=== PATIENT | female | born 1995 | race African-American/Black ===

== ENCOUNTER 2024-07-12 10:23 | Outpatient (CLI) | payer OTHER, SELFPAY ==
--- OUTSIDE RECORDS SUMMARY | 2024-07-12 10:37 | XMS_ITS | Referral Summary ---
Author Organization [facility] Address [address] [place] [address] Care Team Providers Care Manufacturing Test Technician Name Role Phone Shonda Robbins MD Primary Care Provider [phone] Source Comments [facility],non-owned Affiliates and Associated Physician Practices is amultiple site organization consisting of ambulatory clinics and hospital sitesin [place], [place], [place] and [place]. This disclosure is being madepursuant to the Care Everywhere program and may not contain all information available regarding this patient. Last updated 18.[facility] Medications Be aware that medications may not be up to date on this document. Always verify current medications with the patient. No known medications Social History Tobacco Use Types Packs/Day Years Used Date Smoking Tobacco: Never Assessed Sex and Gender Information Value Date Recorded Sex Assigned at Not on file Gender Identity Not on file Sexual Orientation Not on file Plan of Treatment Not on file Care Teams Manufacturing Test Technician Relationship Specialty Start Date End Date Shonda Robbins MD [address] [place] [address] PCP - General 05/18/10
--- OUTSIDE RECORDS SUMMARY | 2024-07-12 10:37 | XMS_ITS | Patient Health Summary ---
Author Organization [facility] Address [address] [place] [address] Care Team Providers Care Live Games Dealer Name Role Phone Shonda Robbins MD Primary Care Provider Note from [facility],non-owned Affiliates and Associated Physician Practices is amultiple site organization consisting of ambulatory clinics and hospital sitesin [place], [place], [place] and [place]. This disclosure is being madepursuant to the Care Everywhere program and may not contain all information available regarding this patient. Last updated 18.[facility] Medications Be aware that medications may not be up to date on this document. Always verify current medications with the patient. No known medications Social History Tobacco Use Types Packs/Day Years Used Date Smoking Tobacco: Never Assessed Sex and Gender Information Value Date Recorded Sex Assigned at Not on file Gender Identity Not on file Sexual Orientation Not on file Procedures * XR SHOULDER RIGHT 2VW OR MORE(Performed 05/18/2010) Performed for Closed dislocation of shoulder, unspecified site Results * XR SHOULDER 2+ VW RIGHT (05/18/2010 2:14 PM X [employer]AY [employer]LECT[employer] WIREMAN) Anatomical Region Laterality Modality Upper Extremity Radiographic Kyara ging 05/18/2010 2:28 PM X [employer] W[employer] Impressions 05/18/2010 2:28 PM X RAY ELECT[employer] WIREMAN 1. Minimal Hill-Sachs deformity superolateral right humeral head. 2. Probable tiny Bankart fracture. Narrative 05/18/2010 2:28 PM X [employer] W[employer] Four views of the right shoulder performed May 18, 2010. History: Shoulder dislocation. Frontal internal and external rotation views of the right shoulder as well as an axillary view were obtained. There is a subtle Hill-Sachs deformity involving the superolateral aspect of the right humeral head. On the axillary view there is suggestion of a tiny bony fragment projected along the anterolateral aspect of the glenoid fossa. This may represent a minimal Bankart lesion. Presently there is no evidence of shoulder dislocation. The acromioclavicular joint is intact. No other fractures are seen. Procedure Note Angelica Durán MD - 05/18/2010 Four views of the right shoulder performed May 18, 2010. History: Shoulder dislocation. Frontal internal and external rotation views of the right shoulder as well as an axillary view were obtained. There is a subtle Hill-Sachs deformity involving the superolateral aspect of the right humeral head. On the axillary view there is suggestion of a tiny bony fragment projected along the anterolateral aspect of the glenoid fossa. This may represent a minimal Bankart lesion. Presently there is no evidence of shoulder dislocation. The acromioclavicular joint is intact. No other fractures are seen. IMPRESSION 1. Minimal Hill-Sachs deformity superolateral right humeral head. 2. Probable tiny Bankart fracture. Satnam Webber MD DIAGNOSTIC GIULIANA Dougherty ORDERABLES Care Teams Live Games Dealer Relationship Specialty Start Date End Date Shonda Robbins MD [address] [address] PCP - General 05/18/10
--- OUTSIDE RECORDS SUMMARY | 2024-07-12 10:37 | XMS_ITS | Referral Summary ---
Author Organization [facility] [place] [facility] Address [address] [place] [address] Care Team Providers Care Nut Feeder Name Role Phone Pastora De Leon NP Primary Care Provider Encounters Date Type Department Care Team Description 06/29/2024 7:00 PM ONLINE MARKETING DIRECTOR Office Visit [facility] at [address] [phone] Alley Greenberg NP COVID-19 (Primary Dx); Sore throat 06/27/2024 8:00 AM ONLINE MARKETING DIRECTOR Office Visit [facility] at [address] [place] [address] Emily Blanchard NP Intractable chronic migraine with aura and without status migrainosus (Primary Dx); Snoring 05/03/2024 Telephone [facility] at [address] [place] [address] Pastora De Leon NP Prior Auth (Quilipta) from Last 3 Months Allergies No known active allergies Medications LORazepam (Ativan) 0.5 mg tabletIndicati ons:Anxiety Take 1 tablet (0.5 mg total) by mouth 2 (two) times a day as needed for anxiety (anxiety) 60 tablet 5 06/01/20 20 Active traZODone (DESYREL) 50 mg tabletIndicati ons:Insomnia, unspecified type Take 1 tablet (50 mg total) by mouth nightly as needed for sleep 30 tablet 5 07/02/19 21 Active sertraline (ZOLOFT) 50 mg tablet Take 1 tablet (50 mg total) by mouth nightly 04/14/20 22 Active atogepant 30 mg tabletIndicati ons:Migraine without aura and without status migrainosus, not intractable Take 30 mg by mouth daily as needed (migraines) 10 tablet 1 11/24/19 24 Active topiramate (TOPAMAX) 25 mg tabletIndicati ons:Intractabl e chronic migraine with aura and without status migrainosus Take 1 tablet (25 mg total) by mouth daily 30 tablet 06/27/19 25 Active buPROPion XL (WELLBUTRIN XL) 150 mg 24 hr tablet Take 1 tablet (150 mg total) by mouth daily 06/20/19 25 Active buPROPion XL (WELLBUTRIN XL) 300 mg 24 hr tablet Take 1 tablet (300 mg total) by mouth daily 06/20/19 25 Active cyclobenzaprin e (FLEXERIL) 10 mg tablet Take 1 tablet (10 mg total) by mouth 3 (three) times a day as needed for muscle spasms 10 tablet 02/16/20 23 025 Discontinued dicyclomine (BENTYL) 10 mg capsuleIndicat ions:Migraine without aura and without status migrainosus, not intractable Take 1 capsule (10 mg total) by mouth 3 (three) times a day as needed (abd pain and diarrhea) 30 capsule 11/03/19 24 025 Discontinued metFORMIN XR (GLUCOPHAGE XR) 500 mg 24 hr tabletIndicati ons:Insulin resistance Take 2 tablets (1,000 mg total) by mouth daily with breakfast 180 tablet 1 11/24/19 24 025 Discontinued buPROPion XL (WELLBUTRIN XL) 450 mg 24 hr tabletIndicati ons:Anxiety Take 1 tablet (450 mg total) by mouth daily 90 tablet 1 11/24/19 24 025 Discontinued nirmatrelvir 300 mg-ritonavir 100 mg (PAXLOVID 300mg-100 mg) tablets,dose pack tablets in a dose packIndication s:COVID-19 Take 300 mg nirmatrelvir (2 x 150 mg tablets) with 100 mg ritonavir (1 x 100 mg tablet) with all three tablets taken together by mouth twice daily for 5 days. 30 tablet 06/29/19 25 025 Active Problems Problem Noted Date Diagnosed Date Intractable chronic migraine with aura and without status migrainosus 06/27/2024 Assessment & Plan (06/27/2024 11:00 AM ONLINE MARKETING DIRECTOR): - Chronic, worsening - Reports improvement with Qulipta but has had problems with insurance coverage. In office samples provided today. - Initiate topiramate 25 mg daily for preventative migraine treatment - Encouraged headache diary to identify triggers - Encouraged adequate fluid intake and rest - Follow-up in 3-4 weeks Snoring 06/27/2024 Assessment & Plan (06/27/2024 11:01 AM ONLINE MARKETING DIRECTOR): - Chronic, worsening - Reports witnessed apneic episodes and loud snoring. Father has history of sleep apnea. - Refer to pulmonology for further evaluation and sleep study Insulin resistance 11/24/2023 Assessment & Plan (11/24/2023 10:18 AM CDT): New problem Start on Metformin XR 1000mg daily Discussed side effects, risk/benefits with pt while in office. May help to lose weight as well Mixed hyperlipidemia 11/24/2023 Assessment & Plan (11/24/2023 10:19 AM CDT): Encouraged dietary modifications - limit intake of saturated fat. This includes full-fat dairy, butter, red meat. Avoid trans fats - this includes commercially prepared baked goods, margarines, snack foods, & processed foods. Limit cholesterol to <200mg daily. Foods high in cholesterol include liver and other organ meats, egg yolks and full-fat dairy products. Replace bad fats with healthy fats like omega -3, avocado, olive, walnut, & coconut oil. Try to get at least 30 min of moderate exertion exercise most days (at least 5). Increase soluble fiber - oatmeal, kidney beans, [place] sprouts, apples, pears, barley and prunes are good examples. Encourage OTC fish oil/omega 3 supp Iron deficiency anemia elvi jacob to inadequate dietary iron intake 11/24/2023 Assessment & Plan (11/24/2023 10:19 AM CDT): New problem Recommend OTC iron supp Irritable bowel syndrome wit h both constipation and diarrhea 11/03/2023 Assessment & Plan (11/03/2023 9:28 AM CDT): Chronic Not well controlled Frequent nausea, abd pain, and diarrhea Has failed on omeprazole, lansoprazole Will try Bentyl, advise to treat sx, encourage peppermint tea/oil May consider GI referral or Elavil if not improving Morbid obesity with BMI of 40.0-44.9, adult 11/2021 Assessment & Plan (11/03/2023 9:26 AM CDT): Not improving 7lbs gained since last visit in 02/2023 Will check hormone panels Gastroesophageal reflux disease without esophagi tis 05/17/2022 Assessment & Plan (07/19/2022 4:26 PM ONLINE MARKETING DIRECTOR): Was not able to get prevacid at the pharmacy Trial omeprazole instead Assessment & Plan (05/17/2022 4:55 PM ONLINE MARKETING DIRECTOR): Start prevacid - treat for 1 month then d/c and see if symptoms return. Current moderate episode of major depressive disorder without prior episode 03/04/2019 Assessment & Plan (06/01/2020 5:56 PM ONLINE MARKETING DIRECTOR): Stable, no changes. Continue current regimen with wellbutrin Assessment & Plan (11/05/2019 4:36 PM CDT): Stable, no changes. Continue current regimen with wellbutrin Assessment & Plan (08/06/2019 4:54 PM ONLINE MARKETING DIRECTOR): Stable, no changes. Continue current regimen with Wellbutrin Assessment & Plan (03/04/2019 9:40 AM CDT): Stable, no changes. Continue current regimen with Wellbutrin. Feels mood changes are related to stress surrounding her recent BAR testing. Anxiety 04/25/2018 Assessment & Plan (11/24/2023 10:17 AM CDT): Stable Continue Zoloft 50mg HS, Ativan 0.5mg BID PRN, Was taking Wellbutrin 300+150 for a combined 450 dose. Switched to 450mg to decrease quantity of daily pills. Assessment & Plan (06/01/2020 5:56 PM ONLINE MARKETING DIRECTOR): Stable, no changes. Continue current regimen with wellbutrin, ativan prn Assessment & Plan (11/05/2019 4:36 PM CDT): Stable, no changes. Continue current regimen with ativan Assessment & Plan (08/06/2019 4:54 PM ONLINE MARKETING DIRECTOR): Stable, no changes. Continue current regimen with Wellbutrin and Ativan Assessment & Plan (03/04/2019 9:39 AM CDT): Stable, no changes. Continue current regimen with Ativan PRN Assessment & Plan (11/15/2018 1:31 PM CDT): Stable, no changes. Continue current regimen with Wellbutrin and Ativan PRN Insomnia 04/25/2018 Assessment & Plan (07/02/2020 1:16 PM ONLINE MARKETING DIRECTOR): Trazodone PRN - refill requested Assessment & Plan (11/05/2019 4:36 PM CDT): Stable, no changes. Continue current regimen with trazodone Assessment & Plan (03/04/2019 9:58 AM CDT): Stable, no changes. Continue current regimen with Trazodone PRN Assessment & Plan (11/15/2018 1:32 PM CDT): Stable, no changes. Continue current regimen with Trazodone Irregular menses 04/25/2018 Assessment & Plan (11/24/2023 10:20 AM CDT): Not improved May be d/t nodule found on US Repeat US ordered for 12/21/23 May also improve with treating insulin resistance F/u 1 month after US Assessment & Plan (11/03/2023 9:21 AM CDT): Recurrent problem Last mense May 2023 Suspicious for PCOS Will check labs including serum preg D/t length without cycle will check TVUS as well May consider progesterone challenge and initiating HALLIE if PCOS Resolved Problems Problem Noted Date Diagnosed Date Resolved Date Chronic migraine with aura 06/27/2024 0 06/27/2024 Migraine without aura and wi thout status migrainosus, not intractable 05/17/2022 06/27/2024 Assessment & Plan (11/24/2023 10:18 AM CDT): Improved with Quilipta samples On furthering discussion with pt has failed on Sumatriptan, Topamax, and Propranolol. Will appeal insurance [place] denial considering new information. Assessment & Plan (11/03/2023 9:25 AM CDT): Not well controlled Failed on sumatriptan Had previous success on Ubrelvy, not preferred formulary for insurance Will try Quilipta Appears Nurtec would be next option if Qulipta not effective Given samples of Qulipta and Ubrelvy while in office today Assessment & Plan (05/17/2022 4:55 PM ONLINE MARKETING DIRECTOR): Worsening, more frequent now and lasting longer. No relief with OTC medications. Start Ubrelvy Elevated serum cholesterol 07/10/2018 0 03/04/2019 Assessment & Plan (11/15/2018 1:32 PM CDT): Lipid abnormalities are improving with lifestyle modifications. Nutritional counseling was provided. Lipids will be reassessed in 6 months. Hypothyroidism 04/25/2018 03/04/2019 Assessment & Plan (11/15/2018 1:32 PM CDT): Off Synthroid. TSH normal. Monitor Class 2 obesity due to exces s calories without serious comorbidity with body mass index (BMI) of 36.0 to 36.9 in adult 04/25/201811/2021 Assessment & Plan (07/02/2020 1:17 PM ONLINE MARKETING DIRECTOR): 5 pounds weight loss since last visit May take topamax BID Phentermine daily Monitor blood pressure - goal of less than 140/90 If high, notify us Return for follow up in 3 months Assessment & Plan (06/01/2020 5:55 PM ONLINE MARKETING DIRECTOR): BMI Follow-up includes: nutrition counseling, exercise counseling and education provided. Restart phentermine + topamax Assessment & Plan (11/05/2019 4:37 PM CDT): Continue phentermine - can try full pill again, but if has symptoms cut back to 1/2 pill daily Get labs done Assessment & Plan (08/06/2019 4:54 PM ONLINE MARKETING DIRECTOR): BMI Follow-up includes: nutrition counseling, exercise counseling and education provided. Try 1/2 dose phentermine Assessment & Plan (03/04/2019 9:39 AM CDT): Will retry phentermine Assessment & Plan (11/15/2018 1:32 PM CDT): Obesity is worsening. Discussed the patient's BMI. The BMI is above average; BMI management plan is completed. General weight loss/lifestyle modification strategies discussed (elicit support from others; identify saboteurs; non-food rewards, etc). Pharmacotherapy as ordered. Immunizations Name Administration Dates Next Due DTP 06/29/1994, 4,1993,06/08 Hep B, Adolescent or Pediatric 1993,1992,1993 HiB 06/29/1994, 4,1993,06/08 Influenza, Quadrivalent, Spl it, Preservative Free, Intramuscular 03/29/2023,05/17/2021,03/04/2020 Influenza, Unspecified 2022,2021(Deferred: Patient decision),05/17/2021,2021,2019,2019(Deferred: Patient decision),2019(Deferred: Patient Refused),2019(Deferred: Patient Refused) MMR 06/29/1994 OPV 1993,1993,1993 Varicella 11/05/2010 Social History Tobacco Use Types Packs/Day Years Used Date Smoking Tobacco: Never Smokeless Tobacco: Never Tobacco Cessation:Counseling Given: Not Answered Alcohol Use Standard Drinks/Week Comments Yes 0 (1 standard drink = 0.6 oz pur e alcohol) occas AUDIT-C Answer Date Recorded Q1: How often do you have a drink containing alcohol? Monthly or less 06/27/2024 Q2: How many drinks containi ng alcohol do you have on a typical day when you are drinking? Patient does not drink Q3: How often do you have si x or more drinks on one occasion? Never 06/27/2024 PHQ-2 Answer Date Recorded PHQ-2 Total Score (If total score is 3 or more points, staff should administer the PHQ-9) 0 11/03/2023 Comments No Sex and Gender Information Value Date Recorded Sex Assigned at Not on file Legal Sex Female 7:08 PM ONLINE MARKETING DIRECTOR Gender Identity Female 11/04/2019 9:40 PM CDT Sexual Orientation Straight 11/04/2019 9: 40 PM CDT Last Filed Vital Signs Vital Sign Reading Time Taken Comments Blood Pressure 120/66 06/29/2024 7:03 PM ONLINE MARKETING DIRECTOR Pulse 116 06/29/2024 7:03 PM ONLINE MARKETING DIRECTOR Temperature 37 ??C (98.6 ??F) 06/29/2024 7:03 PM ONLINE MARKETING DIRECTOR Respiratory Rate 18 06/29/2024 7:03 PM ONLINE MARKETING DIRECTOR Oxygen Saturation 98% 06/29/2024 7:03 PM ONLINE MARKETING DIRECTOR Inhaled Oxygen Concentration - - Weight 106.6 kg (235 lb) 06/29/2024 7:03 PM ONLINE MARKETING DIRECTOR Height 165.1 cm (5' 5 ) 06/29/2024 7:03 PM ONLINE MARKETING DIRECTOR Body Mass Index 39.11 06/29/2024 7:03 PM ONLINE MARKETING DIRECTOR Plan of Treatment Not on file Procedures Procedure Name Priority Date/Time Associated Diagnosis Comments POCT RAPID STREP Routine 06/29/2024 7:20 PM ONLINE MARKETING DIRECTOR Sore throat POC INFLUENZA A/B, COVID-19 ANTIGEN Routine 06/29/2024 7:20 PM ONLINE MARKETING DIRECTOR Sore throat HEPATITIS C ANTIBODY Routine 11/04/2023 8:59 AM CDT Encounter for hepatitis C screening test for low risk patient [facility] PAP SMEAR Routine 12/10/2016 from Last 3 Months or Most Recently Relevant to Health Maintenance Results * (ABNORMAL) POC Influenza A/B, COVID-19 antigen (06/29/2024 7:20 PM ONLINE MARKETING DIRECTOR) [facility] Influenza A Ag, POC Negative Negative [facility] Influenza B Ag, POC Negative Negative [facility] COVID-19 Ag POC Positive(A) Presumptive Negative, Invalid [facility] Nasopharyngeal 06/29/2024 7: 20 PM ONLINE MARKETING DIRECTOR Alley Greenberg NP POINT OF CARE TEST ORDERAB LES Final Result Performing Organization Address City/State/[facility] Co de Phone Number [facility] [address] [place] [address] * POCT rapid strep A (06/29/2024 7:20 PM ONLINE MARKETING DIRECTOR) [facility] Rapid Strep A, POC Negative Negative Swab 06/29/2024 7:20 PM ONLINE MARKETING DIRECTOR Alley Greenberg NP POINT OF CARE TEST ORDERAB LES Final Result * Hepatitis C antibody Blood (11/04/2023 8:59 AM CDT) [facility] Hep C Ab Nonreactive Nonreactive Comment: Antibodies to HCV not detected. Does NOT exclude the possibility of recent exposure to HCV. Current interpretive data was last revised on 22 Interpretive Data Nonreactive: Antibodies to HCV not detected. Does NOT exclude the possibility of recent exposure to HCV. Equivocal: Equivocal for HCV antibodies. Supplemental molecular testing will be automatically performed to determine infection status in accordance with current CDC screening recommendations. ?? Reactive: Positive for HCV antibodies. ??This may represent current or past HCV infection. Supplemental molecular testing will be automatically performed to determine ??current infection status in accordance with current CDC screening recommendations. Interpretive data was last revised on 2019. Blood 11/04/2023 8:59 AM CDT 11/04/2023 9:01 AM CDT us Pastora De Leon [facility] MICROBIOLOGY - GENERAL OR DERABLES Final Result [facility] [address] [facility] Department [place] [address] * PAP SMEAR (12/10/2016) Pap smear Normal Comment:Dr. White us Historical Provider HEALTH MAINTENANCE Final Result from Last 3 Months or Most Recently Relevant to Health Maintenance Insurance [facility] Care Teams Nut Feeder Relationship Specialty Start Date End Date Pastora De Leon NP [address] [facility] [address] [address] PCP - General Family Medicine 09/25/23
--- OUTSIDE RECORDS SUMMARY | 2024-07-12 10:37 | XMS_ITS | Clinical Summary ---
Author Organization [facility] Address [address] [place] [id number] Phone [email or web address] Care Team Providers Care Tire Rebuilder Name Role Phone Pastora De Leon NP Primary Care Provider [phone] Medications buPROPion XL (WELLBUTRIN XL) 150 MG 24 hr tablet Take 150 mg by mouth 1 (one) time each day. 01/31/2022 Active buPROPion XL (WELLBUTRIN XL) 300 MG 24 hr tablet Take 300 mg by mouth 1 (one) time each day. 01/31/2022 Active doxycycline (VIBRA-TABS) 100 MG tablet Take 1 tablet by mouth once daily as needed. 09/26/2019 Active LORazepam (ATIVAN) 0.5 MG tablet Take 0.5 mg by mouth. 06/01/2020 Active phentermine (ADIPEX-P) 37.5 MG tablet Take 37.5 mg by mouth in the morning. 06/01/2020 Active sertraline (ZOLOFT) 50 MG tablet Take 50 mg by mouth 1 (one) time each day in the evening. 01/31/2022 Active topiramate (TOPAMAX) 25 MG tablet Take 25 mg by mouth in the morning and 25 mg in the evening. 06/01/2020 Active traZODone (DESYREL) 50 MG tablet TAKE 1 TABLET BY MOUTH EVERY NIGHT NEEDED FOR INSOMNIA 12/18/2021 Active omeprazole (PriLOSEC) [address] capsule 07/20/2022 Activ e sertraline (ZOLOFT) 50 MG tablet Take 50 mg by mouth every night. 04/14/2022 Active Ubrelvy 50 MG tablet 07/19/2022 Active Atogepant 30 MG tablet Take 30 mg by mouth. 11/24/2023 Active dicyclomine (BENTYL) 10 MG capsule Take 10 mg by mouth. 11/03/2023 Active metFORMIN XR (GLUCOPHAGE-XR) 500 MG 24 hr tablet Take 1,000 mg by mouth in the morning. 11/24/2023 Active Active Problems Problem Noted Date Diagnosed Date Insulin resistance 11/24/2023 Iron deficiency anemia secon nidia to inadequate dietary iron intake 11/24/2023 Mixed hyperlipidemia 11/24/2023 Irritable bowel syndrome wit h both constipation and diarrhea 11/03/2023 Gastroesophageal reflux disease without esophagi tis 05/17/2022 Overview (08/29/2022): Last Assessment & Plan: Was not able to get prevacid at the pharmacy Trial omeprazole instead Migraine without aura and wi thout status migrainosus, not intractable 05/17/2022 Overview (08/29/2022): Last Assessment & Plan: Worsening, more frequent now and lasting longer. No relief with OTC medications. Start Ubrelvy Current moderate episode of major depressive disorder without prior episode 03/04/2019 Overview (02/21/2022): Last Assessment & Plan: Stable, no changes. Continue current regimen with wellbutrin Anxiety 04/25/2018 Overview (02/21/2022): Last Assessment & Plan: Stable, no changes. Continue current regimen with wellbutrin, ativan prn Morbid obesity with BMI of 40.0-44.9, adult 04/12 Overview (08/29/2022): Last Assessment & Plan: 5 pounds weight loss since last visit May take topamax BID Phentermine daily Monitor blood pressure - goal of less than 140/90 If high, notify us Return for follow up in 3 months Insomnia 04/25/2018 Overview (02/21/2022): Last Assessment & Plan: Trazodone PRN - refill requested Irregular menses 04/25/2018 Immunizations Name Administration Dates Next Due Covid-19 (Moderna [place], 12yr s+) (CVX-207) 05/17/2021,08/28/2020,07/31/2020 DTP (CVX-01) 06/29/1994, 4,1993,1992 Hep B (ENGERIX B RECOMBIVAX) Adol/Ped (CVX-08) 1993,1993,1993 Hib, unspecified (CVX-17) 06/29/1994,10/1993,1993,1992 Influenza, (Afluria Fluarix Flulaval Fluzone) quad, PF (CVX-150) 03/29/2023,05/17/2021,03/04/2020 Influenza, unspecified (CVX-88) 03/12/20 22,05/17/2021,2021,2019,03/04/2020 MMR (M-M-R-II,PRIORIX) (TWO VIALS-MUST MIX) (CVX-03) 06/29/1994 OPV (CVX-02) 1993,1993,1993 Varicella (VARIVAX) (TWO VIA LS-MUST MIX) (CVX-21) 11/05/2010 Social History Tobacco Use Types Packs/Day Years Used Date Smoking Tobacco: Never Assessed Intimate Partner Violence Answer Date R ecorded Insults You Not on file 03/26/2021 Threatens You Not on file 03/26/2021 Screams at You Not on file 03/26/2021 Physically Hurt Not on file 03/26/2021 Intimate Partner Violence Score Not on file 03/26/2021 Stress Answer Date Recorded Stress in your Life Not on file 04/15/2024 Dealing with Stress 3 04/15/2024 Comments Unknown Sex and Gender Information Value Date Recorded Sex Assigned at Not on file Legal Sex Female 10:46 AM CDT Gender Identity Not on file Sexual Orientation Not on file Plan of Treatment Health Maintenance Due Date Last Done Comments Dental Cleaning/Exam 1993 HIV Screening 1993 Hepatitis C Screening 1993 Polio Immunization (4 of 4 - 4-dose series) 1997 1993, 1993, 1993 Tetanus (Tdap or Td) Immunization 2004 Tetanus Diphtheria and Pertussis Immunization (5 - Tdap) 2004 06/29/1994, 1993, 1993, Additional history exists Cervical Cancer Screening 2009 Annual Preventive Exam 2011 Hep B Infection Screening - Triple Screen 2011 Covid-19 Immunization ( season) 2024 05/17/2021, 08/28/2020, 07/31/2020 Influenza Immunization (#1) 02/11/202403/12, 2022, 05/17/2021, Additional history exists Hepatitis B Immunization Completed 994, 1993, 1993 HIB Immunization Completed 06/29/1994, 10/1993, 1993, Additional history exists Varicella Immunization Aged Out 11/05/2010 No lo nger eligible based on patient's age to complete this topic HPV Immunization Aged Out No longer e ligible based on patient's age to complete this topic Hepatitis A Immunization Aged Out No longer eligible based on patient's age to complete this topic Pneumococcal: Ped (0 to 5 Yrs) and At-Risk Member (6 to 64 Yrs) Aged Out No longer eligible based on patient's age to complete this topic Insurance [employer] NO COPAY NB Care Teams Tire Rebuilder Relationship Specialty Start Date End Date Pastora De Leon NP [address] [place] [address] [place] [id number] PCP - General Family Medicine 01/25/24
--- OUTSIDE RECORDS SUMMARY | 2024-07-12 10:37 | XMS_ITS | Clinical Summary ---
Author Organization [facility] Address [address] [place] [address] Care Team Providers Care Supervisor Reclamation Name Role Phone Shonda Robbins MD Primary Care Provider [phone] Source Comments [facility],non-owned Affiliates and Associated Physician Practices is amultiple site organization consisting of ambulatory clinics and hospital sitesin [place], [place], [place]. This disclosure is being madepursuant to the Care Everywhere program and may not contain all information available regarding this patient. Last updated 18.[facility] Medications Be aware that medications may [...] Health Maintenance Due Date Last Done Comments PAP SMEAR 1993 HIV SCREENING 2008 HEPATITIS C SCREENING 03/08/2011 DTAP/TDAP/TD VACCINES (1 - Tdap) 2012 HEPATITIS B VACCINE (1 of 3 - 19+ 3-dose series) 2012 COVID-19 VACCINE ( - 2023-2 5 season) 2024 INFLUENZA VACCINE (#1) 2024 DEPRESSION SCREENING 06/12/2024 ZOSTER VACCINE (1 of 2) 2043 HIB VACCINE Aged Out No longer eligi ble based on patient's age to complete this topic HPV VACCINE Aged Out No longer eligi ble based on patient's age to complete this topic MENINGOCOCCAL (Group B) VACCINE Aged Out No longer eligible based on patient's age to complete this topic MENINGOCOCCAL VACCINE Aged Out No isaac nj eligible based on patient's age to complete this topic PNEUMOCOCCAL VACCINE Aged Out No long er eligible based on patient's age to complete this topic Care Teams Supervisor Reclamation Relationship Specialty Start Date End Date Shonda Robbins MD [address] [address] PCP - General 05/18/10
--- OUTSIDE RECORDS SUMMARY | 2024-07-12 10:37 | XMS_ITS | Clinical Summary ---
Author Organization [facility] Address [address] [place] [address] Care Team Providers Care Tour Agent Name Role Phone JoaquinPastora cain DAVID Primary Care Provider [phone] Allergies No known active allergies Medications LORazepam [...] needed for muscle spasms 10 tablet 02/16/20 025 Discontinued dicyclomine (BENTYL) 10 mg capsuleIndicat [...] by mouth daily 90 tablet 1 11/24/19 025 Discontinued nirmatrelvir 300 mg-ritonavir 100 mg [...] 06/27/2024 Assessment & Plan (06/27/2024 11:00 AM MACHINE PACKAGE SEALER): - Chronic, worsening - Reports improvement with Qulipta but has had problems with insurance coverage. In office samples provided today. - Initiate topiramate 25 mg daily for preventative migraine treatment - Encouraged headache diary to identify triggers - Encouraged adequate fluid intake and rest - Follow-up in 3-4 weeks Snoring 06/27/2024 Assessment & Plan (06/27/2024 11:01 AM MACHINE PACKAGE SEALER): - Chronic, worsening - Reports witnessed apneic [...] Increase soluble fiber - oatmeal, kidney beans, [place] sprouts, apples, pears, barley and prunes are [...] Morbid obesity with BMI of 40.0-44.9, adult 12/0 11/2021 Assessment & Plan (11/03/2023 9:26 AM CDT): Not improving 7lbs gained since last visit in 02/2023 Will check hormone panels Gastroesophageal reflux disease without esophagi tis 05/17/2022 Assessment & Plan (07/19/2022 4:26 PM MACHINE PACKAGE SEALER): Was not able to get prevacid at the pharmacy Trial omeprazole instead Assessment & Plan (05/17/2022 4:55 PM MACHINE PACKAGE SEALER): Start prevacid - treat for 1 month then d/c and see if symptoms return. Current moderate episode of major depressive disorder without prior episode 03/04/2019 Assessment & Plan (06/01/2020 5:56 PM MACHINE PACKAGE SEALER): Stable, no changes. Continue current regimen with wellbutrin Assessment & Plan (11/05/2019 4:36 PM CDT): Stable, no changes. Continue current regimen with wellbutrin Assessment & Plan (08/06/2019 4:54 PM MACHINE PACKAGE SEALER): Stable, no changes. Continue current regimen with [...] pills. Assessment & Plan (06/01/2020 5:56 PM MACHINE PACKAGE SEALER): Stable, no changes. Continue current regimen with wellbutrin, ativan prn Assessment & Plan (11/05/2019 4:36 PM CDT): Stable, no changes. Continue current regimen with ativan Assessment & Plan (08/06/2019 4:54 PM MACHINE PACKAGE SEALER): Stable, no changes. Continue current regimen with Wellbutrin and Ativan Assessment & Plan (03/04/2019 9:39 AM CDT): Stable, no changes. Continue current regimen with Ativan PRN Assessment & Plan (11/15/2018 1:31 PM CDT): Stable, no changes. Continue current regimen with Wellbutrin and Ativan PRN Insomnia 04/25/2018 Assessment & Plan (07/02/2020 1:16 PM MACHINE PACKAGE SEALER): Trazodone PRN - refill requested Assessment & [...] today Assessment & Plan (05/17/2022 4:55 PM MACHINE PACKAGE SEALER): Worsening, more frequent now and lasting longer. [...] 04/25/201811/2021 Assessment & Plan (07/02/2020 1:17 PM MACHINE PACKAGE SEALER): 5 pounds weight loss since last visit May take topamax BID Phentermine daily Monitor blood pressure - goal of less than 140/90 If high, notify us Return for follow up in 3 months Assessment & Plan (06/01/2020 5:55 PM MACHINE PACKAGE SEALER): BMI Follow-up includes: nutrition counseling, exercise counseling and education provided. Restart phentermine + topamax Assessment & Plan (11/05/2019 4:37 PM CDT): Continue phentermine - can try full pill again, but if has symptoms cut back to 1/2 pill daily Get labs done Assessment & Plan (08/06/2019 4:54 PM MACHINE PACKAGE SEALER): BMI Follow-up includes: nutrition counseling, exercise counseling [...] saboteurs; non-food rewards, etc). Pharmacotherapy as ordered. Encounters Date Type Department Care Team Description 06/29/2024 7:00 PM MACHINE PACKAGE SEALER Office Visit [facility] at [address] [phone] Alley Greenberg NP COVID-19 (Primary Dx); Sore throat 06/27/2024 8:00 AM MACHINE PACKAGE SEALER Office Visit [facility] at [address] [place] [phone] Emily Blanchard NP Intractable chronic migraine with aura and without status migrainosus (Primary Dx); Snoring 05/03/2024 Telephone [facility] Medicine at [address] [place] [phone] Pastora De Leon NP Prior Auth (Quilipta) from Last 3 Months Immunizations Name Administration Dates Next Due DTP 06/29/1994, 4,1993,06/08 Hep B, Adolescent or Pediatric 1993,1992,1993 HiB 06/29/1994, 4,1993,06/08 Influenza, Quadrivalent, Spl it, Preservative Free, Intramuscular 03/29/2023,05/17/2021,03/04/2020 Influenza, Unspecified 2022,2021(Deferred: Patient decision),05/17/2021,2021,2019,2019(Deferred: Patient decision),2019(Deferred: Patient Refused),2019(Deferred: Patient Refused) MMR 06/29/1994 OPV 1993,1993,1993 Varicella 11/05/2010 Surgical History Surgery Date Site/Laterality Comments NO PAST SURGERIES US ABDOMEN COMPLETE W LIVER DOPPLER (C) 05/01/2018 R ight Medical History Medical History Date Comments Thyroid disease Anemia Hyperlipidemia Elevated serum cholesterol 07/10/2018 Hypothyroidism 04/25/2018 Anxiety Depression Menstrual problem Family History Medical History Relation Name Comments No Known Problems Brother No Known Problems Father Cancer Maternal Grandmother Henny Arthritis Mother Stephanie Myles Breast cancer Mother Stephanie Myles Cancer Mother Stephanie Myles Diabetes Mother Stephanie Myles Cancer Mother's Sister Tanesha Relation Name Status Comments Brother Alive Father Alive Maternal Grandmother Henny Mother Stephanie Myles Alive Mother's Sister Tanesha Social History Tobacco Use Types Packs/Day Years [...] on file Legal Sex Female 7:08 PM MACHINE PACKAGE SEALER Gender Identity Female 11/04/2019 9:40 PM CDT Sexual Orientation Straight 11/04/2019 9: 40 PM CDT Obstetrics History Last Filed Vital Signs Vital Sign Reading Time Taken Comments Blood Pressure 120/66 06/29/2024 7:03 PM MACHINE PACKAGE SEALER Pulse 116 06/29/2024 7:03 PM MACHINE PACKAGE SEALER Temperature 37 ??C (98.6 ??F) 06/29/2024 7:03 PM MACHINE PACKAGE SEALER Respiratory Rate 18 06/29/2024 7:03 PM MACHINE PACKAGE SEALER Oxygen Saturation 98% 06/29/2024 7:03 PM MACHINE PACKAGE SEALER Inhaled Oxygen Concentration - - Weight 106.6 kg (235 lb) 06/29/2024 7:03 PM MACHINE PACKAGE SEALER Height 165.1 cm (5' 5 ) 06/29/2024 7:03 PM MACHINE PACKAGE SEALER Body Mass Index 39.11 06/29/2024 7:03 PM MACHINE PACKAGE SEALER Plan of Treatment Health Maintenance Due Date Last Done Comments DTaP/Tdap/Td Vaccine (5 - Tdap) 2004 06/29/1994, 1993, 1993, Additional history exists Varicella Vaccines (2 of 2 - 13+ 2-dose series) 12/03/2010 11/05/2010 Regular Well Visit/Exam 18-64 2011 Cervical Cancer Screening 12/10/2017 12/10/2016 Covid-19 Vaccine ( season) 2024 05/17/2021, 08/28/2020, 07/31/2020 Influenza Vaccine (#1) 2024 , 2022, 05/17/2021, Additional history exists Depression Screening 11/02/2024 11/03/2023, 07/19/2022, 05/17/2022, Additional history exists Hepatitis C Screening Completed 11/04/2023 HPV Vaccines Aged Out No longer eligi ble based on patient's age to complete this topic Pneumococcal vaccine <65 Aged Out No longer eligible based on patient's age to complete this topic Procedures Procedure Name Priority Date/Time Associated Diagnosis Comments POCT RAPID STREP Routine 06/29/2024 7:20 PM MACHINE PACKAGE SEALER Sore throat POC INFLUENZA A/B, COVID-19 ANTIGEN Routine 06/29/2024 7:20 PM MACHINE PACKAGE SEALER Sore throat HEPATITIS C ANTIBODY Routine 11/04/2023 8:59 AM CDT Encounter for hepatitis C screening test for low risk patient [facility] PAP SMEAR Routine 12/10/2016 from Last 3 Months or Most Recently Relevant to Health Maintenance Results * (ABNORMAL) POC Influenza A/B, COVID-19 antigen (06/29/2024 7:20 PM MACHINE PACKAGE SEALER) [facility] Influenza A Ag, POC Negative Negative [facility] Influenza B Ag, POC Negative Negative [facility] COVID-19 Ag POC Positive(A) Presumptive Negative, Invalid [facility] Nasopharyngeal 06/29/2024 7: 20 PM MACHINE PACKAGE SEALER Alley Greebnerg NP POINT OF CARE TEST ORDERAB LES Final Result [facility] [address] [place] [address] * POCT rapid strep A (06/29/2024 7:20 PM MACHINE PACKAGE SEALER) [facility] Rapid Strep A, POC Negative Negative Swab 06/29/2024 7:20 PM MACHINE PACKAGE SEALER Alley Greenberg NP POINT OF CARE TEST ORDERAB LES Final Result * Hepatitis C antibody Blood (11/04/2023 8:59 AM CDT) [facility] Hep C Ab Nonreactive Nonreactive Comment: Antibodies [...] 8:59 AM CDT 11/04/2023 9:01 AM CDT Pastora De Leon NP LAB MICROBIOLOGY - GENERAL OR DERABLES Final Result [facility] [address] [facility] Department [place] [address] * PAP SMEAR (12/10/2016) Pap smear Normal Comment:Dr. White us Historical Provider HEALTH MAINTENANCE Final Result from Last 3 Months or Most Recently Relevant to Health Maintenance Insurance [facility] Member Subscriber Plan / Payer (Ef fective 2018-Present) Name:Stephanie Myles Relation to Subscriber:Self Name:Stephanie Myles Payer ID:[id number] (NAIC) Type:TRIHE[employer] HMO/PPO Address: [place] [phone] [facility] Care Teams Tour Agent Relationship Specialty Start Date End Date Pastora De Leon NP [address] [place] [address] PCP - General Family Medicine 09/25/23
--- OUTSIDE RECORDS SUMMARY | 2024-07-12 10:37 | XMS_ITS | Clinical Summary ---
Author Organization [facility] Address [address] [place] [address]. [place] [address] [place] [address] Care Team Providers Care Risk Analyst Name Role Phone Carina Norton STEVE Primary Care Provider [phone] Medications levothyroxine 50 MCG tabletIndication s:Hypothyroidism Take 1 tablet (50 mcg total) by mouth every morning. 90 tablet 05/30/2018 Active Social History Tobacco Use Types Packs/Day Years Used Date Smoking Tobacco: Never Assessed Comments Unknown Sex and Gender Information Value Date Recorded Sex Assigned at Not on file Legal Sex Female 4:19 PM CDT Gender Identity Not on file Sexual Orientation Not on file Last Filed Vital Signs Vital Sign Reading Time Taken Comments Blood Pressure 118/76 01/18/2018 8:43 AM CDT Pulse 82 01/18/2018 8:43 AM CDT Temperature - - Respiratory Rate - - Oxygen Saturation - - Inhaled Oxygen Concentration - - Weight 106.1 kg (234 lb) 01/18/2018 8:43 AM CDT Height 162.6 cm (5' 4 ) 01/18/2018 8:43 AM CDT Body Mass Index 40.17 01/18/2018 8:43 AM CDT Plan of Treatment Health Maintenance Due Date Last Done Comments Cervical Cancer Screening Pa p Smear (Age 30 to 64) Every 3 Years 1993 Annual Physical 1996 PHQ-2 (Physician [place]) 2005 Hepatitis C 2011 DTaP, Tdap and Td Vaccines ( 1 - Tdap) 2012 Hepatitis B Vaccines (1 of 3 - 19+ 3-dose series) 2012 Cervical Cancer Screening Pa p with HPV Testing (Age 30 to 64) Every 5 Years 2023 Cervical Cancer Screening with HPV 2023 COVID-19 Vaccine (1 - 2023-2 5 season) 2024 Influenza Adult (#1) 2024 PHQ-2 (Physician [place]) 06/12/2024 HPV Vaccines Aged Out No longer eligi ble based on patient's age to complete this topic Meningococcal B Vaccine Aged Out No l onger eligible based on patient's age to complete this topic Meningococcal Vaccine Aged Out No isaac nj eligible based on patient's age to complete this topic Pneumococcal Vaccine: Pediat rics (0 to 5 Years) and At-Risk Patients (6 to 64 Years) Aged Out No longer eligible b ased on patient's age to complete this topic RSV Immunizations Under 20 Months Aged Out No longer eligible based on patient's age to complete this topic Insurance [employer] Care Teams Risk Analyst Relationship Specialty Start Date End Date Carina Norton FNP [address] [place] [id number] PCP - General Nurse Practitioner Family 05/30/18
[2024-07-12 12:14] LABS: Vitamin D 25 Hydroxy 20.2 ng/mL
[2024-07-14 03:23] LABS: DHEA-Sulfate 87 mcg/dL (19-237); LH 3.3 mIU/mL
[2024-07-16 03:38] LABS: Insulin Level Total 26.6 uIU/mL
[2024-07-21 23:39] LABS: Testosterone Free 2.7 pg/mL (0.1-6.4); Testosterone Total 19 ng/dL (2-45)
== END 2024-07-12 10:24 | disposition home or self-care (01) ==
LOC: ANHLAB 10:25
PROVIDERS: PCP Family Medicine; Visit Provider Nurse Practitioner Obstetrics & Gynecology
DX: N93.9 Abnormal uterine and vaginal bleeding, unspecified (principal)
CPT/HCPCS: 36415; 82306; 82627; 83001; 83002; 83036; 83498; 83525; 84146; 84402; 84403; 84443

== ENCOUNTER 2024-08-23 12:49 | Outpatient (CLI) | payer OTHER, SELFPAY ==
--- NOTE | ~2024-08-23 | US_ITS ---
US pelvic complete w TV Ordering provider: Mirian Genao APRN History: . N93.9 - Abnormal uterine and vaginal bleeding, unspecified . Comparison: None. Technique: Transabdominal and translabial ultrasound of the pelvis (Doppler ultrasound interrogation techniques used as needed for this exam.) FINDINGS: CERVIX: Normal. UTERUS: Measures 6.7x 3.1x 3.4 cm in length which is within normal limits and is anteverted. No myom etrial masses. Translabial size is 7.5 x 4 x 4.7 cm. ENDOMETRIUM: Normal in thickness measuring 6 mm. No endometrial masses, cysts or fluid. CUL DE SAC: No free fluid. RIGHT OVARY: Not visualized. LEFT OVARY: Not visualized. ADNEXA: Normal. No mass. IMPRESSION: Nonvisualization of the ovaries. Otherwise, normal pelvic ultrasound. Reviewed, dictated and finalized at location A.
== END 2024-08-23 12:50 | disposition home or self-care (01) ==
LOC: MICIMG 12:51
PROVIDERS: PCP Nurse Practitioner Obstetrics & Gynecology; Visit Provider Nurse Practitioner Obstetrics & Gynecology
DX: N93.9 Abnormal uterine and vaginal bleeding, unspecified (principal)
CPT/HCPCS: 76830; 76856